=== PATIENT | female | born 1995 | race Caucasian/White ===

== ENCOUNTER 2018-12-09 14:02 | Outpatient (CLI) | payer OTHER ==
--- NOTE | 2018-12-09 15:42 | ULT ---
PELVIC ULTRASOUND: Comparison: None. History: Left ovarian enlargement. Technique: Multiplanar grayscale and color doppler images were obtained in a transabdominal and trans vaginal pelvic ultrasound. Spectral analysis of the doppler waveforms of the ovaries were performed. FINDINGS: There is a nabothian cyst in the cervix. The uterus is normal in size and appearance without focal ab normality. The endometrial stripe is normal in thickness measuring 8 mm. No free fluid is seen in the pelvis. Both ovaries are normal in size and appearance and have numerous small follicles. Normal flow is seen within both ovaries. IMPRESSION: Nabothian cyst; otherwise no significant pelvic abnormality. POS: [facility]
== END 2018-12-09 14:03 | disposition home or self-care (01) ==
LOC: SCSULT 14:02
PROVIDERS: ATTEND Family Medicine
DX: N83.8 Other noninflammatory disorders of ovary, fallopian tube and broad ligament (principal); N88.8 Other specified noninflammatory disorders of cervix uteri
CPT/HCPCS: 76856

== ENCOUNTER 2019-05-12 08:27 | Outpatient (CLI) | payer OTHER ==
--- NOTE | 2019-05-12 09:08 | ULT ---
LIMITED RIGHT BREAST ULTRASOUND: HISTORY: Inverted nipple. FINDINGS: The retroareolar region of the right breast is evaluated. There is no evidence for solid or cystic m ass. There is some scattered echogenic glandular tissue. IMPRESSION: No solid or cystic mass or other significant ultrasound abnormality to account for inverted nipple. BI-RADS category 2-Benign findings. If the patient develops any new palpable finding, follow-up ultrasound study at that time should be c onsidered. Screening mammography should be considered between age 35 and 40, depending upon the patient's risk f actors. POS: OFF
== END 2019-05-12 08:28 | disposition home or self-care (01) ==
LOC: BICULT 08:27
PROVIDERS: ATTEND Family Medicine
DX: N64.59 Other signs and symptoms in breast (principal)